=== PATIENT | female | born 1970 | race Caucasian/White ===

== ENCOUNTER 2019-02-14 09:02 | Emergency (ER) | payer SELFPAY | END 2019-02-14 09:44 | disposition home or self-care (01) | LOC: ERS 09:02 → MERGE 09:02 → ERS 09:44 | DX: S46.011A Strain of muscle(s) and tendon(s) of the rotator cuff of right shoulder, initial encounter (principal); F31.9 Bipolar disorder, unspecified; F17.210 Nicotine dependence, cigarettes, uncomplicated; X50.9XXA Other and unspecified overexertion or strenuous movements or postures, initial encounter | CPT/HCPCS: 99283 ==

== ENCOUNTER 2021-06-03 21:28 | Emergency (ER) | payer SELFPAY ==
[2021-06-03] MEDS ORDERED: Lidocaine 1% (PF) 30 ML VIAL ONE (21:58)
[2021-06-03] MEDS ORDERED: Boostrix 0.5 ML (Tdap) VIAL ONE (22:37)
[2021-06-03] MEDS ORDERED: Ibuprofen 200 MG TAB ONE (22:37)
== END 2021-06-03 22:55 | disposition home or self-care (01) ==
LOC: ERS 21:28
DX: L02.212 Cutaneous abscess of back [any part, except buttock and flank] (principal); L03.312 Cellulitis of back [any part except buttock and flank]; F17.210 Nicotine dependence, cigarettes, uncomplicated
CPT/HCPCS: 10060; 90471; 90715; J2001

== ENCOUNTER 2021-06-06 00:24 | Emergency (ER) | payer SELFPAY | END 2021-06-06 02:06 | disposition home or self-care (01) | LOC: ERS 00:24 | DX: Z48.817 Encounter for surgical aftercare following surgery on the skin and subcutaneous tissue (principal); Z79.899 Other long term (current) drug therapy; Z79.891 Long term (current) use of opiate analgesic; F17.210 Nicotine dependence, cigarettes, uncomplicated | CPT/HCPCS: 99281 ==

== ENCOUNTER 2022-07-04 23:28 | Emergency (ER) | payer SELFPAY ==
[2022-07-05 02:39] LABS: Hemoglobin 17.3 g/dL (12.0-16.0); Mean Corpuscular HGB CONC 32.6 g/dL (32.0-36.0); Mean Corpuscular Hemoglobin 30.7 pg (27.0-31.0); Mean Corpuscular Volume 94.2 fl (78.0-98.0); Mean Platelet Volume 8.4 fL (7.4-10.4); Platelet Count 218 thou/uL (130-400); RBC Distribution Width 12.2 % (11.5-14.5); Red Blood Cell (RBC) Count 5.64 mill/uL (4.20-5.40); White Blood Cell (WBC) Count 11.1 thou/uL (4.8-10.8)
[2022-07-05] MEDS ORDERED: Metoclopramide HCl 10 MG/2 ML VIAL ONE (02:55)
[2022-07-05] MEDS ORDERED: Ketorolac Tromethamine 30 MG/ML VIAL ONE (02:55)
[2022-07-05] MEDS ORDERED: diphenhydrAMINE 50 MG/ML VIAL ONE (02:55)
[2022-07-05 03:03] LABS: ALT (SGPT) 150 U/L (8-55); AST (SGOT) 79 U/L (5-34); Albumin 4.3 g/dL (3.5-5.0); Alkaline Phosphatase 126 U/L (40-110); Anion Gap 15 mmol/L (10-20); BUN (Urea Nitrogen) 7 mg/dL (9.8-20.1); Bilirubin, Total 0.4 mg/dL (0.2-1.2); Calc. Creatinine Clearance 0 mL/min (70-130); Calcium 9.9 mg/dL (7.8-10.44); Carbon Dioxide 24 mmol/L (22-29); Chloride 98 mmol/L (98-107); Estimated GFR 75; Globulin 3.3 g/dL (2.4-3.5); Glucose 475 mg/dL (70-105); Protein, Total 7.6 g/dL (6.0-8.3); Sodium 133 mmol/L (136-145)
[2022-07-05 03:06] LABS: Lymphocytes 55 % (21-51); MDiff Complete? YES; Monocytes 3 % (0-10); Neutrophil 41 % (42-75); Platelet Morphology Comment Appears Adequate; RBC Morphology Normal
== END 2022-07-05 04:20 | disposition home or self-care (01) ==
LOC: ERS 23:28
DX: E11.65 Type 2 diabetes mellitus with hyperglycemia (principal); R51.9 Headache, unspecified; F17.210 Nicotine dependence, cigarettes, uncomplicated
CPT/HCPCS: 36415; 70450; 80053; 85025; 96365; 96375; J1200; J1885; J2765

== ENCOUNTER 2024-08-02 18:30 | Emergency (ER) | payer OTHER ==
[2024-08-02 20:45] LABS: Bacteria/HPF 2+ HPF (None Seen); Bilirubin Negative (Negative); Blood, Urine Trace (Negative); CAUTI Indications for Culture Pelvic or flank pain; Clarity Turbid (Clear); Glucose, Urine (Dipstick) Greater than 1000 mg/dL (Negative); Ketone, Urine Negative (Negative); Leukocyte 500 Leu/uL (Negative); Nitrite 2+ (Negative); Protein, Urine (Dipstick) 10 mg/dL (Neg-Trace); RBC/HPF 0-3 HPF (0-3); Specific Gravity, Urine 1.018 (1.002-1.036); Squamous Epithelial 0-3 HPF (0-3); Urobilinogen Normal mg/dL (Less than 2)
[2024-08-02] MEDS ORDERED: Acetaminophen 500 MG TAB ONE (20:53)
[2024-08-02 20:57] LABS: #Basophils 0.07 10x3/uL (0.0-0.2); %Basophils 0.6 % (0.0-1.0); %Eosinophils 1.5 % (0.0-10.0); %Lymphocytes 32.3 % (21.0-51.0); %Neutrophils 59.3 % (42.0-75.0); Hematocrit 34.9 % (36.0-47.0); Hemoglobin 10.8 g/dL (12.0-16.0); Mean Corpuscular HGB CONC 30.9 g/dL (32.0-36.0); Mean Corpuscular Hemoglobin 26.5 pg (27.0-31.0); Mean Corpuscular Volume 85.7 fL (78.0-98.0); Mean Platelet Volume 8.8 fL (7.4-10.4); Platelet Count 383 10x3/uL (130-400); RBC Distribution Width 14.5 % (11.5-14.5); Red Blood Cell (RBC) Count 4.07 mill/uL (4.20-5.40)
[2024-08-02 21:00] LABS: Urine Culture Reflex Yes Yes
[2024-08-02 21:11] LABS: ALT (SGPT) 18 U/L (8-55); AST (SGOT) 21 U/L (5-34); Albumin 2.6 g/dL (3.5-5.0); Alkaline Phosphatase 146 U/L (40-110); Anion Gap 14 mmol/L (10-20); BUN (Urea Nitrogen) 8 mg/dL (9.8-20.1); Bilirubin, Total 0.2 mg/dL (0.2-1.2); Calc. Creatinine Clearance 0 mL/min (70-130); Calcium 9.1 mg/dL (7.8-10.44); Carbon Dioxide 25 mmol/L (22-29); Chloride 101 mmol/L (98-107); Estimated GFR 101; Globulin 5.3 g/dL (2.4-3.5); Glucose 294 mg/dL (70-105); Potassium 4.1 mmol/L (3.5-5.1); Protein, Total 7.9 g/dL (6.0-8.3); Sodium 136 mmol/L (136-145)
[2024-08-02] MEDS ORDERED: Sodium Chloride 0.9% 100 ML ONE (21:27)
[2024-08-02] MEDS ORDERED: cefTRIAXone (ROCEPHIN) 2 GM VIAL ONE (21:27)
[2024-08-02] MEDS ORDERED: fentaNYL 50 mcg/mL 1 mL Vial ONE (22:44)
[2024-08-02] MEDS ORDERED: Ketorolac Tromethamine 30 MG (1 mL) VIAL ONE (22:44)
== END 2024-08-02 23:05 | disposition home or self-care (01) ==
LOC: ERS 18:30
DX: N39.0 Urinary tract infection, site not specified (principal); N28.89 Other specified disorders of kidney and ureter; F17.210 Nicotine dependence, cigarettes, uncomplicated; E11.9 Type 2 diabetes mellitus without complications
CPT/HCPCS: 36415; 74177; 80053; 81001; 85025; 87077; 87086; 87186; 87428; 96374; 96375; J0696; J1885; J3010